=== PATIENT | male | born 1960 | race Caucasian/White ===

== ENCOUNTER 2017-07-19 01:36 | Inpatient (IN) | payer SELFPAY ==
[2017-07-19] VITALS (23 sets, daily range): BP systolic 129–188; BP diastolic 78–99; PULSE 48–71; RESP 16–19; TEMP 97.7–98.3; O2SAT 16–97
[~2017-07-19] VITALS: Ht 175.3 cm; Wt 91.9 kg
[2017-07-19] MEDS ORDERED: BENA20TA PO (02:03)
--- NOTE | 2017-07-19 02:08 | PD ---
HPI Chief Complaint: Chest Pain Time Seen by Provider: 01:58 Travel History International Travel<30 days: No Contact w/Intl Traveler<30days: No Traveled to known affect area: No History of Present Illness HPI 57-year-old male complains of chest pain. Patient states that he has intermittent substernal left-sided chest pain since yesterday afternoon. Patient states that the pain is a pressure pain localized around the substernal area and left chest area. Patient states that the pain radiated to the upper back. Patient states that the pain usually lasted a few minutes and resolved completely. Patient states that the chest pain is not associated with exertion. Patient denies any palpitation nausea diaphoresis. Patient denies any coughing congestion fever chills. Patient denies any history of CAD. Patient has history hypertension. Patient denies history of diabetes or hyperlipidemia. Patient is a nonsmoker. Patient has family history of heart disease. Patient denies any chest pain now. PFSH Past Medical History Diminished Hearing: No Hypertension: Yes Tetanus Vaccination: < 5 Years Influenza Vaccination: No Social History Alcohol Use: No Tobacco Use: No Substance Use: No Allergies-Medications (Allergen,Severity, Reaction): Coded Allergies: No Known Allergies (Unverified , 07/19/17) Reported Meds & Prescriptions Reported Meds & Active Scripts Active Reported Benazepril (Benazepril HCl) 20 Mg Tab 20 Mg PO DAILY Review of Systems General / Constitutional: No: Fever Eyes: No: Visual changes HENT: No: Headaches Cardiovascular: Positive: Chest Pain or Discomfort Respiratory: No: Shortness of Breath Gastrointestinal: No: Abdominal Pain Genitourinary: No: Dysuria Musculoskeletal: No: Pain Skin: No Rash Neurologic: No: Weakness Psychiatric: No: Depression Endocrine: No: Polydipsia Hematologic/Lymphatic: No: Easy Bruising Physical Exam Narrative GENERAL: Well-nourished, well-developed patient. SKIN: Focused skin assessment warm/dry. HEAD: Normocephalic. EYES: No scleral icterus. No injection or drainage. NECK: Supple, trachea midline. No JVD or lymphadenopathy. CARDIOVASCULAR: Regular rate and rhythm without murmurs, gallops, or rubs. RESPIRATORY: Breath sounds equal bilaterally. No accessory muscle use. GASTROINTESTINAL: Abdomen soft, non-tender, nondistended. MUSCULOSKELETAL: No cyanosis, or edema. BACK: Nontender without obvious deformity. No CVA tenderness. Neurologic exam normal. Data Data Last Documented VS Vital Signs Date Time Temp Pulse Resp B/P (MAP) Pulse Ox O2 Delivery O2 Flow Rate FiO2 07/19/17 03:18 54 16 144/84 (104) 97 Room Air 07/19/17 01:38 97.7 Orders Orders Electrocardiogram (07/19/17 02:03) Complete Blood Count With Diff (07/19/17 02:03) Comprehensive Metabolic Panel (07/19/17 02:03) Creatine Kinase (Cpk) (07/19/17 02:03) Troponin I (07/19/17 02:03) Prothrombin Time / Inr (Pt) (07/19/17 02:03) Act Partial Throm Time (Ptt) (07/19/17 02:03) Chest, Single Ap (07/19/17 02:03) Iv Access Insert/Monitor (07/19/17 02:03) Ecg Monitoring (07/19/17 02:03) Oximetry (07/19/17 02:03) Aspirin (Aspirin) (07/19/17 02:15) Heparin Inj (Heparin Inj) (07/19/17 03:30) Heparin-D5w 25,000 U/250 Ml (Heparin-D5w (07/19/17 03:30) Nitroglycerin 2% Oint (Nitroglycerin 2% (07/19/17 03:30) Admit Order (Ed Use Only) (07/19/17 03:22) Consult Cardiology (07/19/17 ) Labs Laboratory Tests Test 07/19/17 02:08 White Blood Count 6.5 TH/MM3 Red Blood Count 5.17 MIL/MM3 Hemoglobin 16.0 GM/DL Hematocrit 45.4 % Mean Corpuscular Volume 87.8 FL Mean Corpuscular Hemoglobin 30.9 PG Mean Corpuscular Hemoglobin Concent 35.2 % Red Cell Distribution Width 13.5 % Platelet Count 194 TH/MM3 Mean Platelet Volume 8.2 FL Neutrophils (%) (Auto) 60.1 % Lymphocytes (%) (Auto) 22.1 % Monocytes (%) (Auto) 14.0 % Eosinophils (%) (Auto) 2.8 % Basophils (%) (Auto) 1.0 % Neutrophils # (Auto) 3.9 TH/MM3 Lymphocytes # (Auto) 1.4 TH/MM3 Monocytes # (Auto) 0.9 TH/MM3 Eosinophils # (Auto) 0.2 TH/MM3 Basophils # (Auto) 0.1 TH/MM3 CBC Comment DIFF FINAL Differential Comment Prothrombin Time 10.1 SEC Prothromb Time International Ratio 1.0 RATIO Activated Partial Thromboplast Time 27.3 SEC Blood Urea Nitrogen 17 MG/DL Creatinine 1.12 MG/DL Random Glucose 106 MG/DL Total Protein 7.1 GM/DL Albumin 3.6 GM/DL Calcium Level 8.9 MG/DL Alkaline Phosphatase 90 U/L Aspartate Amino Transf (AST/SGOT) 22 U/L Alanine Aminotransferase (ALT/SGPT) 29 U/L Total Bilirubin 0.3 MG/DL Sodium Level 142 MEQ/L Potassium Level 3.6 MEQ/L Chloride Level 106 MEQ/L Carbon Dioxide Level 28.2 MEQ/L Anion Gap 8 MEQ/L Estimat Glomerular Filtration Rate 68 ML/MIN Total Creatine Kinase 118 U/L Troponin I 0.06 NG/ML MDM Medical Decision Making Medical Screen Exam Complete: Yes Emergency Medical Condition: Yes Interpretation(s) Last Impressions Chest X-Ray 07/19/17 020 Signed Impressions: Service Date/Time: Wednesday, July 19, 2017 02:20 - CONCLUSION: No evidence of acute cardiopulmonary disease. Chandu Persaud MD 3:14 AM. EKG shows sinus rhythm with inverted T-wave in leads 3, aVF. CBC within normal limit. CMP within normal limit. Troponin 0.06. Differential Diagnosis Differential diagnosis including musculoskeletal, angina, [place], PE, pneumothorax. Narrative Course 57-year-old male with chest pain. Aspirin 325 mg by mouth given. Spoke with Dr. Hurtado, cardiology on-call. Heparin bolus and drip and admitted [facility]. Diagnosis Primary Impression: NSTEMI (non-ST elevated myocardial infarction) Admitting Information Admitting Physician Requests: Admit Yaniv Guthrie MD Jul 19, 2017 02:08
[2017-07-19] MEDS ORDERED: ASPIRIN 325 MG TAB PO ONE (02:15)
[2017-07-19 02:31] LABS: AUTOMATED NEUTROPHIL # 3.9 TH/MM3 (1.8-7.7); BASOPHIL # 0.1 TH/MM3 (0-0.2); EOSINOPHIL # 0.2 TH/MM3 (0-0.4); EOSINOPHIL % 2.8 % (0.0-4.0); HEMATOCRIT 45.4 % (39.0-51.0); LYMPH % 22.1 % (9.0-44.0); LYMPHOCYTE # 1.4 TH/MM3 (1.0-4.8); MEAN CELL VOLUME 87.8 FL (80.0-100.0); MEAN CORPUSCULAR HEMOGLOBIN 30.9 PG (27.0-34.0); MEAN CORPUSCULAR HGB CONC 35.2 % (32.0-36.0); MEAN PLATELET VOLUME 8.2 FL (7.0-11.0); MONOCYTE # 0.9 TH/MM3 (0-0.9); NEUT % 60.1 % (16.0-70.0); PLATELET COUNT 194 TH/MM3 (150-450); RED BLOOD COUNT 5.17 MIL/MM3 (4.50-5.90); RED CELL DISTRIBUTION WIDTH 13.5 % (11.6-17.2); WHITE BLOOD COUNT 6.5 TH/MM3 (4.0-11.0)
[2017-07-19 02:41] LABS: PROTHROMBIN TIME - PATIENT 10.1 SEC (9.8-11.6)
[2017-07-19 02:46] LABS: ALBUMIN 3.6 GM/DL (3.4-5.0); ALT (GPT) 29 U/L (12-78); AST (GOT) 22 U/L (15-37); BICARBONATE 28.2 MEQ/L (21.0-32.0); BLOOD UREA NITROGEN 17 MG/DL (7-18); CALCIUM 8.9 MG/DL (8.5-10.1); CHLORIDE 106 MEQ/L (98-107); CREATININE 1.12 MG/DL (0.60-1.30); GLOMERULAR FILTRATION RATE 68 ML/MIN (>89); GLUCOSE,RANDOM 106 MG/DL (74-106); SODIUM (NA) 142 MEQ/L (136-145)
[2017-07-19 02:50] LABS: ALKALINE PHOSPHATASE 90 U/L (45-117); TOTAL BILIRUBIN ADULT 0.3 MG/DL (0.2-1.0); TOTAL PROTEIN 7.1 GM/DL (6.4-8.2); TROPONIN I 0.06 NG/ML (0.02-0.05)
--- NOTE | 2017-07-19 03:00 | RADRPT ---
EXAM DATE/TIME: 07/19/2017 02:20 [facility] COMPARISON: No previous studies available for comparison. INDICATIONS : Chest pain. MEDICAL HISTORY : Hypertension. SURGICAL HISTORY : None. ENCOUNTER: Initial ACUITY: 1 day PAIN SCORE: 6/10 LOCATION: Bilateral chest FINDINGS: A single view of the chest demonstrates the lungs to be symmetrically aerated without evidence of mas s, infiltrate or effusion. The cardiomediastinal contours are unremarkable. Osseous structures are intact. CONCLUSION: No evidence of acute cardiopulmonary disease. Chandu Persaud MD on July 19, 2017 at 2:58 Board Certified Radiologist. This report was verified electronically.
[2017-07-19] MEDS ORDERED: NITROGLYCERIN 2% OINT 1 GM PACKET TOPICAL ONE (03:30)
[2017-07-19] MEDS ORDERED: HEPARIN-D5W 25,000 U/250 ML 250 ML IV PRN (03:30)
[2017-07-19] MEDS ORDERED: HEPARIN SODIUM - IV 10,000 UNITS/10 ML VIAL IV ONE (03:30)
[2017-07-19] MEDS: SODIUM CHLOR 0.9% 1000 ML INJ 1,000 ML IV SCH ×6 (03:48→21:49)
[2017-07-19] MEDS ORDERED: ONDANSETRON HCL 4 MG/2 ML VIAL IVP PRN ×2 (04:00→15:15)
[2017-07-19] MEDS ORDERED: LACTULOSE SYRUP 20 GM/30 ML CUP PO PRN (04:00)
[2017-07-19] MEDS ORDERED: SENNOSIDES 8.6 MG TAB PO PRN (04:00)
[2017-07-19] MEDS ORDERED: NITROGLYCERIN 2% OINT 1 GM PACKET TOPICAL PRN (04:00)
[2017-07-19] MEDS ORDERED: SODIUM CHLORIDE 0.9% FLUSH 10 ML FLUSH IV FLUSH PRN (04:00)
[2017-07-19] MEDS ORDERED: MAGNESIUM HYDROXIDE SUSP 30 ML CUP PO PRN (04:00)
[2017-07-19] MEDS ORDERED: MORPHINE SULFATE 2 MG/ML INJ IV PUSH PRN (04:00)
[2017-07-19] MEDS ORDERED: BISACODYL 10 MG SUPP RECTAL PRN (04:00)
[2017-07-19] MEDS ORDERED: ACETAMINOPHEN 325 MG TAB PO PRN (04:00)
[2017-07-19] MEDS ORDERED: ACETAMINOPHEN/HYDROcodone 325 MG/5 MG TAB PO PRN (04:00)
[2017-07-19] MEDS ORDERED: MORPHINE SULFATE 2 MG/ML INJ IV PRN (04:00)
--- NOTE | 2017-07-19 04:00 | HHI.HP ---
HPI Service [facility] Primary Care Physician No Primary Care Physician Admission Diagnosis NSTEMI Diagnoses: (1) NSTEMI (non-ST elevated myocardial infarction) Diagnosis: Principal (2) HTN (hypertension) Diagnosis: Principal (3) Dehydration Diagnosis: Principal Travel History International Travel<30 Days: No Contact w/Intl Traveler <30 Da: No Traveled to Known Affected Are: No History of Present Illness This is a 57-year-old male with a PMH of HTN who presented to the ER with complaints of chest pain x1 day. Chest pain is intermittent, pressure-like w/ radiation to back. Moderate severity. Associated w/ mild SOB. No previous h/ o similar symptoms. Denies fever, chills, cough or sick contacts. On arrival, BP 188/91, HR 71, O2 sat 96% on RA, Afebrile. CBC essentially unremarkable. Chemistry unremarkable except for GFR 68. Troponin 0.06. INR 1.0. EKG with T- wave inversions III and AVF. CXR w/ no acute findings. Dr. Hurtado consulted, plan is for Cath in am. Started on Heparin gtt. Currently chest pain free. Review of Systems Except as stated in HPI: all other systems reviewed are Neg ROS: 14 point review of systems otherwise negative. Past Family Social History Past Medical History PMH: HTN Past Surgical History PAST SURGICAL HISTORY: Negative for alcohol, tobacco or drugs. Allergies: Coded Allergies: No Known Allergies (Unverified , 07/19/17) Family History PAST FAMILY HISTORY: Reviewed. No h/o DM or CAD Social History PAST SOCIAL HISTORY: Negative for alcohol, tobacco or drugs. Physical Exam Vital Signs Vital Signs Date Time Temp Pulse Resp B/P (MAP) Pulse Ox O2 Delivery O2 Flow Rate FiO2 07/19/17 03:18 54 16 144/84 (104) 97 Room Air 07/19/17 02:18 16 97 Room Air 07/19/17 02:17 97 Room Air 07/19/17 02:00 69 16 175/93 (120) 97 Room Air 07/19/17 01:38 97.7 71 19 188/91 (123) 96 Room Air Physical Exam PE: GENERAL: Pleasant middle-aged white male in no acute distress. HEENT: PERRLA, EOMI. No scleral icterus or conjunctival pallor. No lid lag or facial droop. CARDIOVASCULAR: Regular rate and rhythm. No obvious murmurs to auscultation. No chest tenderness to palpation. RESPIRATORY: No obvious rhonchi or wheezing. Clear to auscultation. Breath sounds equal bilaterally. GASTROINTESTINAL: Abdomen soft, non-tender, nondistended. BS normal. MUSCULOSKELETAL: Extremities without clubbing, cyanosis, or edema. No obvious deformities. NEUROLOGICAL: Awake, alert and oriented x4. No focal neurologic deficits. Moving both upper and lower extremities spontaneously. Laboratory Laboratory Tests Test 07/19/17 02:08 White Blood Count 6.5 Red Blood Count 5.17 Hemoglobin 16.0 Hematocrit 45.4 Mean Corpuscular Volume 87.8 Mean Corpuscular Hemoglobin 30.9 Mean Corpuscular Hemoglobin Concent 35.2 Red Cell Distribution Width 13.5 Platelet Count 194 Mean Platelet Volume 8.2 Neutrophils (%) (Auto) 60.1 Lymphocytes (%) (Auto) 22.1 Monocytes (%) (Auto) 14.0 Eosinophils (%) (Auto) 2.8 Basophils (%) (Auto) 1.0 Neutrophils # (Auto) 3.9 Lymphocytes # (Auto) 1.4 Monocytes # (Auto) 0.9 Eosinophils # (Auto) 0.2 Basophils # (Auto) 0.1 CBC Comment DIFF FINAL Differential Comment Prothrombin Time 10.1 Prothromb Time International Ratio 1.0 Activated Partial Thromboplast Time 27.3 Blood Urea Nitrogen 17 Creatinine 1.12 Random Glucose 106 Total Protein 7.1 Albumin 3.6 Calcium Level 8.9 Alkaline Phosphatase 90 Aspartate Amino Transf (AST/SGOT) 22 Alanine Aminotransferase (ALT/SGPT) 29 Total Bilirubin 0.3 Sodium Level 142 Potassium Level 3.6 Chloride Level 106 Carbon Dioxide Level 28.2 Anion Gap 8 Estimat Glomerular Filtration Rate 68 Total Creatine Kinase 118 Troponin I 0.06 Result Diagram: 07/19/1720707/19/17207 Caprini VTE Risk Assessment Caprini VTE Risk Assessment: Mod/High Risk (score >= 2) Caprini Risk Assessment Model Point Value = 1 Point Value = 2 Point Value = 3 Point Value = 5 Age 41-60 Minor surgery BMI > 25 kg/m2 Swollen legs Varicose veins or History of unexplained or recurrent spontaneous Oral contraceptives or hormone replacement Sepsis (< 1 month) Serious lung disease, including pneumonia (< 1 month) Abnormal pulmonary function Acute myocardial infarction Congestive heart failure (< 1 month) History of inflammatory bowel disease Medical patient at bed rest Age 61-74 Arthroscopic surgery Major open surgery (> 45 min) Laparoscopic surgery (> 45 min) Malignancy Confined to bed (> 72 hours) Immobilizing plaster cast Central venous access Age >= 75 History of VTE Family history of VTE Factor V Leiden Prothrombin [id number] Lupus anticoagulant Anticardiolipin antibodies Elevated serum homocysteine Heparin-induced thrombocytopenia Other congenital or acquired thrombophilia Stroke (< 1 month) Elective arthroplasty Hip, pelvis, or leg fracture Acute spinal cord injury (< 1 month) Prophylaxis Regimen Total Risk Factor Score Risk Level Prophylaxis Regimen 0-1 Low Early ambulation 2 Moderate Order ONE of the following: *Sequential Compression Device (SCD) *Heparin 5000 units SQ BID 3-4 Higher Order ONE of the following medications: *Heparin 5000 units SQ TID *Enoxaparin/Lovenox 40 mg SQ daily (WT < 150 kg, CrCl > 30 mL/min) *Enoxaparin/Lovenox 30 mg SQ daily (WT < 150 kg, CrCl > 10-29 mL/min) *Enoxaparin/Lovenox 30 mg SQ BID (WT < 150 kg, CrCl > 30 mL/min) AND/OR *Sequential Compression Device (SCD) 5 or more Highest Order ONE of the following medications: *Heparin 5000 units SQ TID (Preferred with Epidurals) *Enoxaparin/Lovenox 40 mg SQ daily (WT < 150 kg, CrCl > 30 mL/min) *Enoxaparin/Lovenox 30 mg SQ daily (WT < 150 kg, CrCl > 10-29 mL/min) *Enoxaparin/Lovenox 30 mg SQ BID (WT < 150 kg, CrCl > 30 mL/min) AND *Sequential Compression Device (SCD) Assessment and Plan Problem List: (1) NSTEMI (non-ST elevated myocardial infarction) ICD Code: I21.4 - Non-ST elevation (NSTEMI) myocardial infarction Status: Acute (2) HTN (hypertension) ICD Code: I10 - Essential (primary) hypertension (3) Dehydration ICD Code: E86.0 - Dehydration Assessment and Plan A/P: 1. NSTEMI: acute onset of chest pain, trop 0.06, EKG w/ t wave inversions III and AVF. Currently chest pain free. Admit to [facility], telemetry, check serial cardiac enzymes, lipid profile, continue Heparin gtt, start ASA, Statin, Metoprolol. Plan is for Cath in am, NPO, IVF, NTG/Morphine prn. Consult for Dr. Hurtado placed. CXR w/ no acute findings, images reviewed by me. 2. HTN: Uncontrolled. BP 180's systolic. Start Metoprolol. Monitor BP. 3. Dehydration: GFR 68, no previous labs for comparison. IVF for hydration, repeat labs in am. 4. DVT Prophylaxis: Heparin gtt 5. Social work for d/c planning as needed. 6. Case discussed w/ ER physician at length, records/labs/imaging reviewed by me. Physician Certification 2 Midnight Certification Type: Admission for Inpatient Services Order for Inpatient Services The services are ordered in accordance with Medicare regulations or non- Medicare payer requirements, as applicable. In the case of services not specified as inpatient-only, they are appropriately provided as inpatient services in accordance with the 2-midnight benchmark. Estimated LOS (days): 2 days is the estimated time the patient will need to remain in the hospital, assuming treatment plan goals are met and no additional complications. Post-Hospital Plan: Not yet determined Korin Hatfield MD Jul 19, 2017 04:00
[2017-07-19] MEDS: DOCUSATE SODIUM 50 MG/SENNA 8.6 MG TAB PO SCH ×2 (07:31→20:49)
[2017-07-19] MEDS: SODIUM CHLORIDE 0.9% FLUSH 10 ML FLUSH IV FLUSH SCH ×2 (08:54→20:49)
[2017-07-19] MEDS: METOPROLOL TARTRATE 25 MG TAB PO SCH ×2 (08:55→20:49)
[2017-07-19] MEDS: PRAVASTATIN SOD 40 MG TAB PO SCH (08:55)
[2017-07-19] MEDS ORDERED: ASPIRIN EC 81 MG TABEC PO SCH (09:00)
[2017-07-19] MEDS ORDERED: DIAZEPAM 5 MG TAB PO SCH (12:00)
[2017-07-19] MEDS: NITROGLYCERIN 2% OINT 1 GM PACKET TOPICAL SCH ×2 (12:00→18:00)
[2017-07-19] MEDS ORDERED: ASPIRIN 325 MG TAB PO SCH (12:00)
[2017-07-19] MEDS ORDERED: diphenhydrAMINE HCL 50 MG CAP PO SCH (12:00)
[2017-07-19] MEDS ORDERED: VERAPAMIL HCL 5 MG/2 ML VIAL ONE (12:44)
[2017-07-19] MEDS ORDERED: HEPARIN-NS/PF INJ 1,000 ML ONE (12:44)
[2017-07-19] MEDS ORDERED: HEPARIN SODIUM - IV 10,000 UNITS/10 ML VIAL ONE (12:45)
[2017-07-19] MEDS ORDERED: IOHEXOL 350 MG/ML 100 ML BTL (for Cath Lab) OTHER ONE (12:48)
[2017-07-19] MEDS ORDERED: IOHEXOL 350 MG/ML 50 ML BTL (for Cath Lab) OTHER ONE (12:48)
[2017-07-19] MEDS ORDERED: MIDAZOLAM HCL 2 MG/2 ML VIAL ONE ×3 (13:25→14:41)
[2017-07-19] MEDS ORDERED: BIVALIRUDIN 250 MG VIAL ONE (13:43)
[2017-07-19] MEDS ORDERED: STERILE WATER FOR INJECTION 10 ML VIAL ONE (13:43)
[2017-07-19] MEDS ORDERED: TICAGRELOR 90 MG TAB PO ONE ×2 (14:55→15:15)
[2017-07-19] MEDS ORDERED: MISC INFORMATION XX ONE (15:15)
[2017-07-19] MEDS ORDERED: BACITRACIN OINT 0.9 GM PKT TOP ONE (15:15)
--- NOTE | 2017-07-19 15:17 | CATHPROC ---
Transcepta HIS Report Study Information Study Number Admission Scheduled Start Study Start [id number] Jul 19 2017 3:24AM 07/19/2017 Jul 19 2017 12:44PM [place] Service Cardiac Catheterization Admit Source Facility Department Emergency department [facility] - Accounts Receivable Analyst Physician and Clinical Staff Initial Tuan Nichols Balance Bridge Assembler Rico Hollingsworth,ARIADNE Balance Bridge Assembler Madonna Sandra,ARIADNE Recorder Prakash, Eloise,DRESS DESIGNER TECH2 Scrub Aristeo Boswell,RT(R) Procedures Performed Procedure Location (Site) Vessel Name Coronary Angiograms LCA Left Coronary Coronary Angiograms RCA Right Coronary Drug Eluting Inflatio DIAG Prox Left Coronary Drug Eluting Inflatio LAD Prox Left Coronary LV Gram-hand inj. LV LV Ventricle PTCA DIAG1 Prox Left Coronary PTCA LAD Prox Left Coronary Wire insertion Radial (right) Radial Art. Equipment Time Electric Organ Inspector And Repairer Description Size Mfg Part Number Used/Scraped WIRE, BALANCE MIDDLEWEIGHT [id number] 13:48 [employer] 190CM Used 190CM *[id number] TRANSDUCER, TRUWAVE [id number] 12:53 YOUNG PEARSON * Used W/STOCKCOCK *[id number] *[id number] *[id number] *[id number] 12:53 MALLINCKRODT SYRINGE, ANGIOMAT 150ML 150ML *[id number] Used 2SUB [id number] 12:53 MEDLINE INDUSTRIES PACK, CCL CUSTOM * Used *[id number] 12:53 [employer] SUPPORT, ARTERIAL ADULT 41592 *[id number] Used [id number] 12:53 MEDLINE PACER PEN, SKIN DUAL W/ RULER * Used *[id number] 14:04 MEDTRONIC BALLOON, 2.0 X 20MM EUPHORA 20MM Used *[id number] [id number] 14:32 MEDTRONIC BALLOON, 2.5 X 20MM EUPHORA 20MM Used *6025682 [id number] 14:42 MEDTRONIC BALLOON, 3.0 X 20MM EUPHORA 20MM Used *[id number] [id number] 14:15 MEDTRONIC STENT, 2.25 18MM DARRICK 2.25 18MM Used *[id number] 14:22 MEDTRONIC STENT, 2.25 8MM DARRICK 2.25 8MM Used *[id number] [id number] 14:31 MEDTRONIC STENT, 4.0 22MM DARRICK 4.0 22MM Used *[id number] [id number] 14:11 Plum (Formerly Ube) 30 NGOZI INDEFLATOR Used *[id number] BAND, RADIAL COMPRESSION TR [id number] 14:56 benchee MEDICAL 29CM Used LARGE 29 *[id number] 12:53 Plum (Formerly Ube) WIRE, EXCHANGE 260CM 3MMJ 260CM Used *[id number] 12:53 NAMIC MANIFOLD, 4 PORT * Used *4743761 12:53 NYCOMED OMNIPAQUE, 350 MG, 100ML 100ML [id number] Used [id number] 12:53 [employer]ix BLANKET,WARM AIR CCL * Used *7254364 12:53 [employer] JELCO NEEDLE 4056 *4316684 Used CATHETER, FR5 OPTITORQUE [id number] 13:13 Colingo FR 5 Used RADIAL TIG 4.0 *[id number] SHEATH, FR6 TRANSRADIAL RM*[id number] 12:53 [employer] FR 6 Used SLENDER 10CM *[id number] Equipment Model, Serial, Lot Number and Expiration Data Description Model Number Serial Number Lot Number Expiration Sean e BALLOON, 2.5 X 20MM EUPHORA [id number] 11-26-2018 BALLOON, 3.0 X 20MM EUPHORA [id number] 01-24-2019 STENT, 2.25 18MM DARRICK [id number] 03-09-2019 STENT, 2.25 8MM DARRICK [id number] 12-03-2018 STENT, 4.0 22MM DARRICK [id number] 03-06-2019 History: Allergies Allergy Reaction No Known Allergies History: Risk Factors Family History of Hypertension Dyslipidemia Previous NM Previous Heart Failure Premature CAD Yes No Yes No No Prior Valve Prior PCI Prior CABG Surgery No No No Cerebrovascular Peripheral Artery Chronic Lung On Dialysis Diabetes Disease Disease Disease No No No No No History: Symptoms/Diagnosis Selection Items Chest pain SOB History: Stress Tests Stress or Imaging Studies Performed No History: Other Current Smoker Method Quit Packs a Day Years Used Pack Years No Cigarettes 4 Years Ago 1 35 35 Labs Hgb (g/dl) Hct (%) RBC (MIL/MM3) WBC (l/cumm) Platelets (thousands) 11.60-17.00 35.00-51.00 4.00-5.90 4.00-11.00 150.00-450.00 16.0 45.4 5.2 6.5 194 Glucose (mg/dl) BUN (mg/dl) Creatinine (mg/dl) BUN:Creatinine (1:x) 74.00-106.00 7.00-18.00 0.50-1.30 10.00-20.00 106 17 1.1 15.5 Na (meq/l) K (meq/l) Cl (meq/l) CO2 (mmol/L) Ca (mg/dl) 136.00-145.00 3.50-5.10 98.00-107.00 21.00-32.00 8.50-10.10 142 3.6 106 28.2 8.9 PT (sec) PTT (sec) INR (PTT:PT) 9.80-11.60 24.30-30.10 0.90-1.10 10.1 38.4 1 Troponin I (ng/ml) CPK (u/l) CPK-MB (ng/ML) 0.02-0.05 26.00-308.00 0.50-3.60 0.06 118 Not Drawn Medication Medication Total Dose (Bolus/Oral) Medication Total Dosage/Unit 1% XYLOCAINE 10 mL BRILINTA 180 mg FENTANYL 75 mcg HEPARIN 6500 units NITRO OINTMENT 1 inches NTG (IC) 100 mcg OXYGEN 2 l/min RADIAL COCKTAIL 5 mL (Bolus) VERSED 4.5 mg Medications (Bolus/Oral) Medication Time Given Dosage/Unit Administered By Reason 07/19/2017 12:56:37 NITRO OINTMENT 1 inches PM Patient arrived on 1 inches NITRO OINTMENT via Topical. VERSED 07/19/2017 1:26:07 PM 2 mg Madonna Sandra 2 mg VERSED given in lab by Madonna Sandra, RN in Right Antecubital via Peripheral IV. Ordered by Tuan Pepe. FENTANYL 07/19/2017 1:28:13 PM 50 mcg Madonna Sandra 50 mcg FENTANYL given in lab by Madonna Sandra, RN in Right Antecubital via Peripheral IV. Ordered b Tuan Lindsay. 1% XYLOCAINE 07/19/2017 1:30:10 PM 10 mL Tuan Hurtado 10 mL 1% XYLOCAINE given in lab by Tuan Hurtado in Right Radial via Subcutaneous. Ordered by Tuan Hurtado. VERSED 07/19/2017 1:30:49 PM 0.5 mg Madonna Sandra 0.5 mg VERSED given in lab by Madonna Sandra RN in Right Antecubital via Peripheral IV. Ordered by Tuan Hurtado. OXYGEN 07/19/2017 1:31:15 PM 2 l/min Madonna Sandra 2 l/min OXYGEN given in lab by Madonna Sandra RN via Nasal. Ordered by Tuan Hurtado. Ntg 200mcg Verapamil 2.5mg Heparin RADIAL COCKTAIL 07/19/2017 1:33:40 PM 5 mL (Bolus) Tuan Hurtado 2500U 5 mL (Bolus) RADIAL COCKTAIL given in lab by Tuan Hurtado in Right Radial via Radial. Using [Solutio n Name]. Ordered by Tuan Hurtado. Reason: Ntg 200mcg Verapamil 2.5mg Heparin 2500U. HEPARIN 07/19/2017 1:48:17 PM 4000 units Rico Hollingsworth 4000 units HEPARIN given in lab by Rico Hollingsworth RN in Right Antecubital via Peripheral IV. Ordered by Tuan Hurtado. HEPARIN 07/19/2017 2:02:46 PM 2500 units Madonna Sandra 2500 units HEPARIN given in lab by Madonna Sandra RN in Right Antecubital via Peripheral IV. Ordere d by Tuan Hurtado. VERSED 07/19/2017 2:34:10 PM 1 mg Madonna Sandra 1 mg VERSED given in lab by Madonna Sandra RN in Right Antecubital via Peripheral IV. Ordered by Tuan Pepe. VERSED 07/19/2017 2:41:54 PM 1 mg Rico Hollingsworth 1 mg VERSED given in lab by Rico Hollingsworth RN in Right Antecubital via Peripheral IV. Ordered by Tuan Goddard. FENTANYL 07/19/2017 2:42:30 PM 25 mcg Rico Hollingsworth 25 mcg FENTANYL given in lab by Rico Hollingsworth RN in Right Antecubital via Peripheral IV. Ordered by Tuan Hurtado. NTG (IC) 07/19/2017 2:49:38 PM 100 mcg Tuan Hurtado 100 mcg NTG (IC) given in lab by Tuan Hurtado via Intra-coronary. Ordered by Tuan Hurtado. BRILINTA 07/19/2017 2:58:09 PM 180 mg Rico Hollingsworth 180 mg BRILINTA given in lab by Rico Hollingsworth RN via Oral. Ordered by Tuan Hurtado. Medication (Drip) Medication Time Given Dosage/Unit Concentration/Unit Diluent (ml) Solution 07/19/2017 12:56:29 IV Solutions 0 mL (IV) 500 NaCl .9 PM Patient arrived on IV Solutions in Left Antecubital via Peripheral IV. Pump/Drip Flow = 20 ml/hr usin g NaCl .9. Initial Case Assessment Cardiovascular HR Rhythm NIBP Chest Pain 62 sr 160/94 0 Circulatory - Right Pulses Dorsalis Pedis Femoral Radial 3 3 3 Scale (0,1,2,3,4,d) Circulatory - Left Pulses Dorsalis Pedis Femoral Radial 3 3 Scale (0,1,2,3,4,d) Final Case Assessment Cardiovascular HR Rhythm NIBP Chest Pain 76 sr 144/93 0 Circulatory - Right Pulses Dorsalis Pedis Femoral Radial 3 3 3 Scale (0,1,2,3,4,d) Circulatory - Left Pulses Dorsalis Pedis Femoral Radial 3 3 Scale (0,1,2,3,4,d) Neurological State Oriented to time-place- Alert Moves all extremities person Respiration - General Respiration Rate O2 (lpm) (B/min) 15 2 Chronological Log Time Study Chronological Log 12:56:15 Patient arrived via Bed. 12:56:16 Patient Name, D.O.B, / Armband Verified By R.N. 12:56:17 Consent signed by the physician and the patient and verified by the Accounts Receivable Analyst staff. 12:56:18 Pre-op and post- op instructions given; patient acknowledges understanding of instructions. 12:56:19 Verbal Stimulation=2 Physical Stimulation=2 Airway=2 Respiration=2 TOTAL=8. (0=absent, 1=li mited, 2=present) 12:56:22 Allens test performed on the right radial and ulnar artery. 12:56:24 Patient has been NPO for Less than 6Hrs. 12:56:25 Skin Breakdown-none 12:56:26 Peter Prominences Protected 12:56:28 A # 20 IV was noted in the Antecubital (left). Grade = patent 12:56:29 Patient arrived on IV Solutions in Left Antecubital via Peripheral IV. Pump/Drip Flow = 20 ml/hr using NaCl .9. 12:56:32 History and physical on the chart or being dictated. 12:56:37 Patient arrived on 1 inches NITRO OINTMENT via Topical. Vitals capture started with the following parameters, Patient=Adult, Interval=5 min, Initial Pr zgojfg=784 mmHg, 12:59:32 Deflation Rate=5 mmHg, Cuff placed on Left Arm 13:00:13 HR=62 bpm, INSV=666/94 mmhg, SpO2=96.0 %, Resp=12 B/min, Pain=0, Miquel=10, May=2 Assessment: Initial Case, HR=62 BPM, Rhythm=sr, VULY=346/94 mmhg, Chest Pain=0 13:00:41 Right Pulses: Lm Ped=3, Femoral=3, Radial=3 Left Pulses: Lm Ped=3, Femoral=3 13:05:10 HR=51 bpm, KXGU=845/89 mmhg, SpO2=96.0 %, Resp=16 B/min, Pain=0, Miquel=10, May=2 13:10:13 HR=59 bpm, HGPG=790/91 mmhg, SpO2=97.0 %, Resp=11 B/min, Pain=0, Miquel=10, May=2 13:11:32 Right groin and right wrist prepped with 2% chlorhexidine, and draped after a 3 min. waitin g time. 13:13:21 MD paged 13:15:16 HR=54 bpm, GXIS=612/89 mmhg, SpO2=97.0 %, Resp=18 B/min 13:16:11 Pressure channel 1 zeroed. 13:20:13 HR=57 bpm, XYYO=162/89 mmhg, SpO2=93.0 %, Resp=18 B/min 13:21:13 MD arrived. 13:23:49 Reference ECG taken 13:25:12 HR=63 bpm, BJTB=431/94 mmhg, SpO2=93.0 %, Resp=20 B/min 13:26:07 2 mg VERSED given in lab by Madonna Sandra, ARIADNE in Right Antecubital via Peripheral IV. Ord ered by Tuan Hurtado. Time Out. Correct patient, correct procedure, correct physician, power injector loaded, or not loaded with contrast with 13:26:27 surgical team present. Time Out Concurred by MD and individual staff in procedure. 13:28:13 50 mcg FENTANYL given in lab by Madonna Sandra, RN in Right Antecubital via Peripheral IV. Ordered by Tuan Hurtado. 13:30:08 Case Start 13:30:10 10 mL 1% XYLOCAINE given in lab by Tuan Hurtado in Right Radial via Subcutaneous. Ordered by Tuan Hurtado. 13:30:13 HR=64 bpm, DOEN=621/88 mmhg, SpO2=91.0 %, Resp=19 B/min 13:30:49 0.5 mg VERSED given in lab by Madonna Sandra RN in Right Antecubital via Peripheral IV. O rdered by Tuan Hurtado. 13:31:15 2 l/min OXYGEN given in lab by Madonna Sandra, ARIADNE via Nasal. Ordered by Tuan Hurtado. 13:32:11 Access site was Radial Artery. A SHEATH, FR6 TRANSRADIAL SLENDER 10CM FR 6 was advanced into the Radial (right) using the Perc utaneous 13:32:35 technique. 5 mL (Bolus) RADIAL COCKTAIL given in lab by Tuan Hurtado in Right Radial via Radial. Using [S olution Name]. 13:33:40 Ordered by Tuan Hurtado. Reason: Ntg 200mcg Verapamil 2.5mg Heparin 2500U. A CATHETER, FR5 OPTITORQUE RADIAL TIG 4.0 FR 5 was advanced over a wire. OMNIPAQUE, 350 MG, 100 ML 100ML 13:34:34 was used for injections. 13:35:12 HR=66 bpm, DAND=341/76 mmhg, SpO2=95 %, Resp=15 B/min, Miquel=10 Recorded Pressure: Ao, HR=70, Condition=Condition 1 13:36:02 (Aorta) Ao 115/77/95 13:37:10 The LCA was injected and visualized at various angles. OMNIPAQUE, 350 MG, 100ML 100ML used . 13:40:15 HR=70 bpm, CAID=759/72 mmhg, SpO2=92.0 %, Resp=12 B/min Recorded Pressure: LV, HR=73, Condition=Condition 1 13:41:01 (Left Ventricle) LV 125/7/12 13:41:32 The LV was manually injected with 10 cc's and visualized. OMNIPAQUE, 350 MG, 100ML 100ML us ed. Recorded Pressure: LV, Ao, HR=70, Condition=Condition 1 13:41:38 (Left Ventricle) LV 129/11/15, (Aorta) Ao 119/74/95 13:43:33 After removing the current catheter a catheter was advanced over a WIRE, EXCHANGE 260CM 3MM J 260CM. 13:45:16 HR=66 bpm, PJWX=050/77 mmhg, SpO2=93.0 %, Resp=12 B/min 13:46:36 The RCA was injected and visualized at various angles. OMNIPAQUE, 350 MG, 100ML 100ML used . 13:48:17 4000 units HEPARIN given in lab by Rico Hollingsworth, RN in Right Antecubital via Peripheral IV . Ordered by Tuan Hurtado. 13:50:15 HR=65 bpm, LSYP=848/77 mmhg, SpO2=94.0 %, Resp=13 B/min 13:55:12 HR=59 bpm, JMJO=702/79 mmhg, SpO2=97 %, Resp=13 B/min 13:57:37 Activated Clotting Time Drawn After removing the current catheter a XB 3.5 GUIDE CATHETER FR 6 was advanced over a WIRE, EXCH EAMON 260CM 13:57:42 3MMJ 260CM. 14:00:15 HR=59 bpm, YQLP=664/82 mmhg, SpO2=96.0 %, Resp=14 B/min 14:00:34 A WIRE, BALANCE MIDDLEWEIGHT 190CM 190CM was inserted via Radial (right) to the Diagonal. 14:01:47 ACT (Normal Range 90-180) = 255 2500 units HEPARIN given in lab by Madonna Sandra, RN in Right Antecubital via Peripheral IV. Ordered by Bryant, 14:02:46 Tuan. 14:05:15 HR=57 bpm, KHVW=358/81 mmhg, SpO2=97.0 %, Resp=13 B/min 14:05:20 A WIRE, ATW MARKER 195CM 195CM was inserted via Radial (right) to the LAD. 14:09:03 Activated Clotting Time Drawn A BALLOON, 2.0 X 20MM EUPHORA 20MM was inserted over WIRE, BALANCE MIDDLEWEIGHT 190CM 190CM via the 14:09:34 DIAG1 Prox. 14:10:18 HR=58 bpm, EEAK=544/76 mmhg, SpO2=98.0 %, Resp=13 B/min A BALLOON, 2.0 X 20MM EUPHORA 20MM over a WIRE, BALANCE MIDDLEWEIGHT 190CM 190CM in the DIAG1 P lainey 14:11:16 was inflated using a 30 NGOZI INDEFLATOR at 12 ngozi for 34 sec. A BALLOON, 2.0 X 20MM EUPHORA 20MM over a WIRE, BALANCE MIDDLEWEIGHT 190CM 190CM in the DIAG1 P lainey 14:12:09 was inflated using a 30 NGOZI INDEFLATOR at 12 ngozi for 30 sec. 14:12:51 Balloon Removed. 14:15:17 HR=64 bpm, LYKV=458/84 mmhg, QdL5=167.0 %, Resp=11 B/min A STENT, 2.25 18MM DARRICK 2.25 18MM was advanced through a XB 3.5 GUIDE CATHETER FR 6 over a WIRE , BALANCE 14:16:32 MIDDLEWEIGHT 190CM 190CM. 14:17:08 ACT (Normal Range 90-180) = 435 A STENT, 2.25 18MM DARRICK 2.25 18MM was deployed using a 30 NGOZI INDEFLATOR at 9 atmospheres for 2 2 seconds in 14:19:08 the DIAG Prox. 14:20:01 Delivery device removed 14:20:18 HR=60 bpm, MEKM=826/87 mmhg, SpO2=99.0 %, Resp=13 B/min, Miquel=10 A STENT, 2.25 8MM DARRICK 2.25 8MM was advanced through a XB 3.5 GUIDE CATHETER FR 6 over a WIRE, BALANCE 14:23:57 MIDDLEWEIGHT 190CM 190CM. A STENT, 2.25 8MM DARRICK 2.25 8MM was deployed using a 30 NGOZI INDEFLATOR at 8 atmospheres for 22 seconds in 14:24:20 the DIAG Prox. 14:25:03 Re-inflated the stent balloon in the DIAG Prox to 10 NGOZI for 13 seconds. 14:25:17 HR=64 bpm, DQFN=535/90 mmhg, SpO2=97.0 %, Resp=25 B/min ::32 Delivery device removed A STENT, 4.0 22MM DARRICK 4.0 22MM was advanced through a XB 3.5 GUIDE CATHETER FR 6 over a WIRE, ATW 14:29:12 MARKER 195CM 195CM. 14:30:18 HR=66 bpm, DTTF=071/91 mmhg, SpO2=94.0 %, Resp=15 B/min 14:31:33 Stent not deployed. Stent removed and intact. 14:32:48 A BALLOON, 2.5 X 20MM EUPHORA 20MM was inserted over WIRE, ATW MARKER 195CM 195CM via the L AD Prox. 14:34:10 1 mg VERSED given in lab by Madonna Sandra RN in Right Antecubital via Peripheral IV. Ord ered by Tuan Hurtado. A BALLOON, 2.5 X 20MM EUPHORA 20MM over a WIRE, ATW MARKER 195CM 195CM in the LAD Prox was infl ated 14:34:16 using a 30 NGOZI INDEFLATOR at 16 ngozi for 30 sec. 14:35:19 HR=64 bpm, TSJV=484/94 mmhg, SpO2=98.0 %, Resp=20 B/min 14:35:27 Balloon Removed. 14:37:54 A implantable was advanced through a XB 3.5 GUIDE CATHETER FR 6 over a WIRE, ATW MARKER 195 CM 195CM. 14:39:59 Stent not deployed. Stent removed and intact. 14:40:20 HR=64 bpm, XRQE=575/88 mmhg, SpO2=99.0 %, Resp=10 B/min 14:41:41 A BALLOON, 3.0 X 20MM EUPHORA 20MM was inserted over WIRE, ATW MARKER 195CM 195CM via the L AD Prox. 14:41:54 1 mg VERSED given in lab by Rico Hollingsworth, RN in Right Antecubital via Peripheral IV. Order ed by Tuan Hurtado. 14:42:30 25 mcg FENTANYL given in lab by Rico Hollingsworth RN in Right Antecubital via Peripheral IV. O rdered by Tuan Hurtado. 14:45:19 HR=60 bpm, XQRL=987/90 mmhg, SpO2=95.0 %, Resp=11 B/min A BALLOON, 3.0 X 20MM EUPHORA 20MM over a WIRE, ATW MARKER 195CM 195CM in the LAD Prox was infl ated 14:46:46 using a 30 NGOZI INDEFLATOR at 8 ngozi for 16 sec. A BALLOON, 3.0 X 20MM EUPHORA 20MM over a WIRE, ATW MARKER 195CM 195CM in the LAD Prox was infl ated 14:47:11 using a 30 NGOZI INDEFLATOR at 8 ngozi for 10 sec. 14:48:23 Balloon Removed. 14:49:21 BMW Wire removed 14:49:38 100 mcg NTG (IC) given in lab by Tuan Hurtado via Intra-coronary. Ordered by Tuan Hurtado . A STENT, 4.0 22MM DARRICK 4.0 22MM was advanced through a XB 3.5 GUIDE CATHETER FR 6 over a WIRE, ATW 14:50:04 MARKER 195CM 195CM. 14:50:20 HR=75 bpm, PRUB=284/90 mmhg, SpO2=93 %, Resp=15 B/min A STENT, 4.0 22MM DARRICK 4.0 22MM was deployed using a 30 NGOZI INDEFLATOR at 12 atmospheres for 34 seconds in 14:51:38 the LAD Prox. 14:53:04 Delivery device removed 14:55:17 HR=64 bpm, ZOKE=676/87 mmhg, SpO2=92.0 %, Resp=14 B/min 14:55:43 Wire removed 14:55:50 Guide Catheter was removed 14:56:08 Case End 14:58:09 180 mg BRILINTA given in lab by Rico Hollingsworth, RN via Oral. Ordered by Tuan Hurtado. Radial Compression Device Used. 13 mLs of air placed in BAND, RADIAL COMPRESSION TR LARGE 29 29 CM. Affected 14:59:17 hand 94 % O2 saturation. 15:00:20 HR=64 bpm, QUPX=460/93 mmhg, SpO2=96.0 %, Resp=14 B/min, Miquel=10 Assessment: Final Case, HR=76 BPM, Rhythm=sr, ZSKG=460/93 mmhg, Chest Pain=0 Right Pulses: Lm Ped=3, Femoral=3, Radial=3 15:00:47 Left Pulses: Lm Ped=3, Femoral=3 Neurological: State=Alert, Ox3, WHITE Respiration: Resp=15 B/min, O2=2 lpm 15:02:18 No case complications noted. 15:02:22 Cine recording checked. 15:02:55 Implantable Device card placed in patient's chart. 15:02:59 Bedside Report will be given. 15:05:06 Patient moved to bed. 15:07:38 Patient transported to [facility]. End Study - Contrast Media Used In Study Contrast Total Opened (mL) Total Used (mL) Total Wasted (mL) Omnipaque 220 220 0 End Study - Maximum Contrast Load Max Contrast Load (mL) 409.1 End Study - Radiation Exposure Fluoro Time (minutes) 25.0 End Study - Sheaths Sheaths Pulled By Sheath Hold Time (min) Aristeo Boswell End Study - Patient Disposition Complications Transferred To Interventional Outcome No Telemetry Bed successful
--- NOTE | 2017-07-19 17:16 | MA ---
cc: SRINIVAS TORRES M.D. DATE: 07/19/2017. PROCEDURE PERFORMED: Right radial arterial access, left heart catheterization, left ventriculography, coronary angiography, tandem stenting of the first diagonal branch of the left anterior descending artery, complex balloon angioplasty and stenting of the proximal left anterior descending coronary artery. DESCRIPTION OF THE PROCEDURE IN DETAIL: The patient was brought to the cardiac blood bank laboratory technologist under emergency conditions. He received a total 3 milligrams of IV Versed and 50 micrograms of IV fentanyl for initial sedation using 1% lidocaine for local anesthesia. A 6 and 5 Terumo slender sheath was introduced into the right radial artery using a Jelco needle. A standard cocktail was administered with 200 micrograms of nitroglycerin, 2.5 milligrams of verapamil and 2500 units of heparin. A tiger catheter was used to image the left coronary artery. I could not get it to engage the right coronary artery. A right 5-Robbie was then used to image the right coronary artery. Left ventriculogram and pullback was also performed with the Sparks catheter. The films were studied and I opted to do a diagonal and left anterior descending intervention. A 6-Ukrainian XB 3.5 left anterior descending guiding catheter was used to engage the left main. The diagonal branch was wired with a BMW wire. The left anterior descending was wired with a marker wire. The left anterior descending lesion was measured. Next I stented the diagonal branch utilizing a 2.25 x 18 mm Resolute stent at 8 atmospheres. There was some residual disease on the distal end so I placed a 2.25 x 8 mm Resolute [place] in tandem with the other stents at 9 atmospheres and dilated the overlap of the two stents at 10 atmospheres. The diagonal branch now had good flow and no residual stenosis. I then tried to direct stent the left anterior descending. The stent would not cross. I pre-dilated with a 2.5 mm balloon. The stent would still not cross. I pre-dilated with a 3 mm balloon more proximally and this time I was able to cross with a 4.0 x 22 mm Resolute stent which was deployed at 12 atmospheres. Follow up angiography demonstrated an excellent result. There were no complications. The patient was loaded with Brilinta at the end of the case. The guiding catheter and the sheath were removed with a Terumo band placed. The estimated blood loss was 30 cc. FINDINGS: 1. Hemodynamics: Left ventricular pressure is 129/11 with an end diastolic pressure of 15. Aortic pressure is 119/74 with a mean of 95. There was no gradient during pullback. 2. Left ventriculography: The left ventricle suboptimally filled but ejection fraction appears probably normal with estimated ejection fraction of 50%. 3. Coronary angiography: The left main coronary artery is a large vessel with about 10% distal narrowing. It trifurcates into the circumflex artery, a very small ramus branch and the left anterior descending. The circumflex artery has about 50% stenosis between the first and second obtuse marginal branches. The first obtuse marginal branch has 10% to 20% disease. The second obtuse marginal branch has 30% disease. The ramus intermediate branch is very small and has about 40% ostial disease. The diagonal branch gives off a small but long diagonal branch which has 99% stenosis. The left anterior descending proximally then has a long 90% stenosis. The right coronary artery is dominant and has a stenosis starting about 30% in the proximal and extending into the mid-segment. RESULTS OF STENTING: Following stenting of the left anterior descending, the 90% stenosis had been reduced to 0% with change in NYLA flow from grade 2 to grade 3. Following stenting of the diagonal branch, the 99% stenosis had been reduced to 0% with improvement of NYLA flow from grade II to grade III. CONCLUSIONS: 1. Normal hemodynamics. 2. Preserved left ventricular function. 3. Critical left anterior descending and diagonal disease with moderate circumflex and mild right coronary artery disease. 4. Successful complex stenting of the left anterior descending and diagonal branch with excellent angiographic results. PLAN: 1. The patient will be put on aspirin and Brilinta. 2. Assuming he remains stable, he will be able to be discharged tomorrow. MD MARINA Valle/JESSICA /2:56 PM /4:49 PM
[2017-07-19] MEDS: TICAGRELOR 90 MG TAB PO SCH (20:56)
--- NOTE | 2017-07-19 21:50 | EKG ---
Date Performed: 07/19/2017 Time Performed: 17:21:28 PTAGE: 57 years EKG: Sinus rhythm . Leftward axis Borderline ECG PREVIOUS TRACING : 07/19/2017 12.15 Compared to prior tracing no significant change DOCTOR: Sampson Meng Interpretating Date/Time 07/19/2017 21:49:44
--- NOTE | 2017-07-19 22:15 | EKG ---
Date Performed: 07/19/2017 Time Performed: 12:15:58 PTAGE: 57 years EKG: Sinus bradycardia with borderline 1st degree A-V block. Leftward axis Borderline ECG PREVIOUS TRACING : 07/19/2017 01.52 Compared to the previous tracing, rate has decreased DOCTOR: Sampson Meng Interpretating Date/Time 07/19/2017 22:13:35
[2017-07-20] VITALS (10 sets, daily range): BP systolic 132–154; BP diastolic 84–89; PULSE 56–86; RESP 16–18; TEMP 97.4–98.1; O2SAT 91–97
[2017-07-20] MEDS: SODIUM CHLOR 0.9% 1000 ML INJ 1,000 ML IV SCH ×2 (01:38→07:38)
[2017-07-20] MEDS: NITROGLYCERIN 2% OINT 1 GM PACKET TOPICAL SCH ×3 (01:38→12:00)
[2017-07-20 07:06] LABS: ALBUMIN 3.3 GM/DL (3.4-5.0); AST (GOT) 39 U/L (15-37); BLOOD UREA NITROGEN 13 MG/DL (7-18); CALCIUM 8.7 MG/DL (8.5-10.1); CHLORIDE 109 MEQ/L (98-107); CHOLESTEROL 179 MG/DL (120-200); CREATININE 0.98 MG/DL (0.60-1.30); GLOMERULAR FILTRATION RATE 79 ML/MIN (>89); GLUCOSE,RANDOM 80 MG/DL (74-106); SODIUM (NA) 141 MEQ/L (136-145); TRIGLYCERIDES 146 MG/DL (42-150)
[2017-07-20 07:09] LABS: ALKALINE PHOSPHATASE 92 U/L (45-117); ALT (GPT) 27 U/L (12-78); CHOLESTEROL/ HDL RATIO 5.35 RATIO; HDL CHOLESTEROL 33.4 MG/DL (40.0-60.0); LDL CHOLESTEROL 116 MG/DL (0-99); TOTAL BILIRUBIN ADULT 0.7 MG/DL (0.2-1.0); TOTAL PROTEIN 6.6 GM/DL (6.4-8.2)
[2017-07-20 07:37] LABS: AUTOMATED NEUTROPHIL # 5.4 TH/MM3 (1.8-7.7); BASOPHIL % 0.4 % (0.0-2.0); EOSINOPHIL # 0.1 TH/MM3 (0-0.4); EOSINOPHIL % 1.2 % (0.0-4.0); HEMATOCRIT 43.8 % (39.0-51.0); HEMOGLOBIN 15.3 GM/DL (13.0-17.0); LYMPH % 14.5 % (9.0-44.0); LYMPHOCYTE # 1.1 TH/MM3 (1.0-4.8); MEAN CORPUSCULAR HEMOGLOBIN 30.7 PG (27.0-34.0); MEAN CORPUSCULAR HGB CONC 34.9 % (32.0-36.0); MEAN PLATELET VOLUME 8.5 FL (7.0-11.0); MONO % 9.9 % (0.0-8.0); MONOCYTE # 0.7 TH/MM3 (0-0.9); PLATELET COUNT 193 TH/MM3 (150-450); RED BLOOD COUNT 4.98 MIL/MM3 (4.50-5.90); RED CELL DISTRIBUTION WIDTH 13.6 % (11.6-17.2); WHITE BLOOD COUNT 7.3 TH/MM3 (4.0-11.0)
[2017-07-20] MEDS: TICAGRELOR 90 MG TAB PO SCH (08:25)
[2017-07-20] MEDS: SODIUM CHLORIDE 0.9% FLUSH 10 ML FLUSH IV FLUSH SCH (08:25)
[2017-07-20] MEDS: METOPROLOL TARTRATE 25 MG TAB PO SCH (08:25)
[2017-07-20] MEDS: PRAVASTATIN SOD 40 MG TAB PO SCH (08:25)
[2017-07-20] MEDS: DOCUSATE SODIUM 50 MG/SENNA 8.6 MG TAB PO SCH (08:26)
[2017-07-20] MEDS ORDERED: BRIL90TA PO (08:40)
[2017-07-20] MEDS ORDERED: PRAV40TA PO (08:40)
[2017-07-20] MEDS ORDERED: METO25TA3 PO (08:40)
--- NOTE | 2017-07-20 08:46 | HHI.DS ---
Discharge Summary Admission Date Jul 19, 2017 at 03:24 Discharge Date: Jul 20, 2017 Admitting Diagnosis NSTEMI (1) NSTEMI (non-ST elevated myocardial infarction) ICD Code: I21.4 - Non-ST elevation (NSTEMI) myocardial infarction Status: Acute (2) HTN (hypertension) ICD Code: I10 - Essential (primary) hypertension (3) Dehydration ICD Code: E86.0 - Dehydration Procedures Cardiac catheterization with 3 stents placed on 07/19/17 Brief History - From Admission This is a 57-year-old male with a PMH of HTN who presented to the ER with complaints of chest pain x1 day. Chest pain is intermittent, pressure-like w/ radiation to back. Moderate severity. Associated w/ mild SOB. No previous h/ o similar symptoms. Denies fever, chills, cough or sick contacts. On arrival, BP 188/91, HR 71, O2 sat 96% on RA, Afebrile. CBC essentially unremarkable. Chemistry unremarkable except for GFR 68. Troponin 0.06. INR 1.0. EKG with T- wave inversions III and AVF. CXR w/ no acute findings. Dr. Hurtado consulted, plan is for Cath in am. Started on Heparin gtt. Currently chest pain free. CBC/BMP: 07/20/17 0505 07/20/17 0505 Significant Findings Laboratory Tests Test 07/19/17 02:08 07/19/17 11:40 07/19/17 15:33 07/20/17 05:05 Monocytes (%) (Auto) 14.0 % (0.0-8.0) 9.9 % (0.0-8.0) Estimat Glomerular Filtration Rate 68 ML/MIN (>89) 79 ML/MIN (>89) Troponin I 0.06 NG/ML (0.02-0.05) 3.40 NG/ML (0.02-0.05) 4.11 NG/ML (0.02-0.05) Activated Partial Thromboplast Time 38.4 SEC (24.3-30.1) Neutrophils (%) (Auto) 74.0 % (16.0-70.0) Albumin 3.3 GM/DL (3.4-5.0) Aspartate Amino Transf (AST/SGOT) 39 U/L (15-37) Chloride Level 109 MEQ/L (98-107) LDL Cholesterol 116 MG/DL (0-99) HDL Cholesterol 33.4 MG/DL (40.0-60.0) Hospital Course 57M with strong family history of OH and CAD presented to the ER two days ago with recurrent substernal chest pain. ER labwork showed elevation of troponin at 0.6 which subsequently jumped as high as 4.11. He was taken to the [facility] yesterday where 3 stents were placed by cardiology. Today he feels fantastic, already notices increased energy. He is free from chest pain and I will write for his discharge when he is cleared by cardiology. Pt Condition on Discharge: Good Discharge Disposition: Discharge Home Discharge Time: <= 30 minutes Mikie Sands MD Jul 20, 2017 08:46
[2017-07-20] MEDS ORDERED: ASPI81 PO (09:00)
[2017-07-20] MEDS ORDERED: BENA20TA PO (09:00)
[2017-07-20] MEDS ORDERED: ASPIRIN 81 MG CHEW TAB PO SCH (09:00)
[2017-07-20] MEDS ORDERED: INFLUENZA VIRUS VACCINE (QUADRIVALENT) 0.5 ML SYR IM ONE (10:00)
--- NOTE | 2017-07-20 10:07 | PD.CARD.PN ---
Subjective Subjective Remarks Feels great No chest pain/SOB Objective Medications Current Medications Medications (Trade) Dose Ordered Sig/Marvin Route Start Time Stop Time Status Last Admin (NS Flush) 2 ml UNSCH PRN IV FLUSH 07/19/17 04:00 (NS Flush) 2 ml BID IV FLUSH 07/19/17 09:00 07/20/17 08:25 (Tylenol) 650 mg Q6H PRN PO 07/19/17 04:00 (Mica 5-325 Mg) 1 tab Q4H PRN PO 07/19/17 04:00 (Yris-Colace) 1 tab BID PO 07/19/17 09:00 (Milk Of Magnesia Liq) 30 ml Q12H PRN PO 07/19/17 04:00 (Senokot) 17.2 mg Q12H PRN PO 07/19/17 04:00 (Dulcolax Supp) 10 mg DAILY PRN RECTAL 07/19/17 04:00 (Lactulose Liq) 30 ml DAILY PRN PO 07/19/17 04:00 (Nitroglycerin 2% Oint) 0.5 inch Q6HR PRN TOPICAL 07/19/17 04:00 (Pravachol) 40 mg DAILY PO 07/19/17 09:00 07/20/17 08:25 (Morphine Inj) 2 mg Q3H PRN IV 07/19/17 04:00 (Lopressor) 25 mg Q12HR PO 07/19/17 09:00 07/20/17 08:25 (Nitroglycerin 2% Oint) 0.5 inch Q6HR TOPICAL 07/19/17 12:00 07/20/17 01:38 Sodium Chloride 1,000 ml @ 100 mls/hr Q10H IV 07/19/17 11:49 07/24/17 11:48 (Aspirin) 325 mg HIDE CURER PO 07/19/17 12:00 07/23/17 11:59 (Benadryl) 50 mg HIDE CURER PO 07/19/17 12:00 07/23/17 11:59 (Valium) 5 mg HIDE CURER PO 07/19/17 12:00 07/23/17 11:59 (Zofran Inj) 4 mg Q6H PRN IVP 07/19/17 15:15 (Aspirin Chew) 81 mg DAILY PO 07/20/17 09:00 12/31/17 08:25 (Brilinta) 90 mg BID PO 07/19/17 21:00 07/20/17 08:25 Vital Signs / I&O Vital Signs Date Time Temp Pulse Resp B/P (MAP) Pulse Ox O2 Delivery O2 Flow Rate FiO2 07/20/17 09:03 73 07/20/17 08:45 97.4 69 18 154/89 (110) 97 07/20/17 08:45 56 07/20/17 06:00 72 07/20/17 05:00 64 07/20/17 04:00 66 07/20/17 03:00 64 07/20/17 02:23 98.1 86 16 132/84 (100) 91 07/20/17 02:00 66 07/20/17 01:00 62 07/20/17 00:00 64 07/19/17 23:00 97.9 64 16 139/78 (98) 94 07/19/17 23:00 64 07/19/17 22:00 60 07/19/17 21:00 58 07/19/17 20:30 97.9 60 16 153/96 (115) 95 07/19/17 20:00 58 07/19/17 19:00 63 07/19/17 18:01 69 07/19/17 17:11 62 07/19/17 16:25 64 07/19/17 15:56 98.0 61 16 129/79 (96) 97 07/19/17 15:56 63 07/19/17 15:35 16 07/19/17 12:01 64 07/19/17 11:43 48 07/19/17 11:43 98.0 55 16 134/85 (101) 16 I/O 07/19/17 07/19/17 07/19/17 07/20/17 07/20/17 07/20/17 07:00 15:00 23:00 07:00 15:00 23:00 Intake Total 60 ml 1540 ml 1520 ml Output Total 500 ml 700 ml Balance 60 ml 1040 ml 820 ml Intake Oral 840 ml 720 ml IV Total 60 ml 700 ml 800 ml Output Urine Total 500 ml 700 ml Stool Total 0 ml 0 ml Physical Exam GENERAL: NAD, AAOx3 SKIN: Warm and dry. HEAD: Atraumatic. Normocephalic. EYES: Pupils equal and round. No scleral icterus. No injection or drainage. ENT: No nasal bleeding or discharge. Mucous membranes pink and moist. NECK: Trachea midline. No JVD. CARDIOVASCULAR: Regular rate and rhythm. RESPIRATORY: No accessory muscle use. Clear to auscultation. Breath sounds equal bilaterally. GASTROINTESTINAL: Abdomen soft, non-tender, nondistended. Hepatic and splenic margins not palpable. MUSCULOSKELETAL: Extremities without clubbing, cyanosis, or edema. No obvious deformities. Right radial no hematoma, neurovascularly intact distally NEUROLOGICAL: Awake and alert. No obvious cranial nerve deficits. Motor grossly within normal limits. Five out of 5 muscle strength in the arms and legs. Normal speech. PSYCHIATRIC: Appropriate mood and affect; insight and judgment normal. Laboratory Laboratory Tests Test 07/19/17 11:40 07/19/17 15:33 07/20/17 05:05 Activated Partial Thromboplast Time 38.4 SEC Troponin I 3.40 NG/ML 4.11 NG/ML White Blood Count 7.3 TH/MM3 Red Blood Count 4.98 MIL/MM3 Hemoglobin 15.3 GM/DL Hematocrit 43.8 % Mean Corpuscular Volume 88.0 FL Mean Corpuscular Hemoglobin 30.7 PG Mean Corpuscular Hemoglobin Concent 34.9 % Red Cell Distribution Width 13.6 % Platelet Count 193 TH/MM3 Mean Platelet Volume 8.5 FL Neutrophils (%) (Auto) 74.0 % Lymphocytes (%) (Auto) 14.5 % Monocytes (%) (Auto) 9.9 % Eosinophils (%) (Auto) 1.2 % Basophils (%) (Auto) 0.4 % Neutrophils # (Auto) 5.4 TH/MM3 Lymphocytes # (Auto) 1.1 TH/MM3 Monocytes # (Auto) 0.7 TH/MM3 Eosinophils # (Auto) 0.1 TH/MM3 Basophils # (Auto) 0.0 TH/MM3 CBC Comment DIFF FINAL Differential Comment Blood Urea Nitrogen 13 MG/DL Creatinine 0.98 MG/DL Random Glucose 80 MG/DL Total Protein 6.6 GM/DL Albumin 3.3 GM/DL Calcium Level 8.7 MG/DL Alkaline Phosphatase 92 U/L Aspartate Amino Transf (AST/SGOT) 39 U/L Alanine Aminotransferase (ALT/SGPT) 27 U/L Total Bilirubin 0.7 MG/DL Sodium Level 141 MEQ/L Potassium Level 3.6 MEQ/L Chloride Level 109 MEQ/L Carbon Dioxide Level 26.0 MEQ/L Anion Gap 6 MEQ/L Estimat Glomerular Filtration Rate 79 ML/MIN Total Creatine Kinase 177 U/L Triglycerides Level 146 MG/DL Cholesterol Level 179 MG/DL LDL Cholesterol 116 MG/DL HDL Cholesterol 33.4 MG/DL Cholesterol/HDL Ratio 5.35 RATIO Assessment and Plan Problem List: (1) NSTEMI (non-ST elevated myocardial infarction) ICD Codes: I21.4 - Non-ST elevation (NSTEMI) myocardial infarction Status: Acute (2) HTN (hypertension) ICD Codes: I10 - Essential (primary) hypertension Assessment and Plan 1) NSTEMI s/p NORBERT to LAD ASA/Brilinta/BB/Statin/YU-I Given a card for Brilinta 30 days with instructions Plan on "Blue Card" to help with medications Given a script for 1 year of Brilinta and if too expensive, given a script for Plavix Discussed extensively with patient and his about taking DAPT and if Brilinta is too expensive then switching to Plavix, but not taking both 2) Echo today 3) After echo, cardiovascularly stable for discharge Sampson Meng DO Jul 20, 2017 10:07
--- NOTE | 2017-07-20 11:42 | ECHRPT ---
Indication: NSTEMI CONCLUSIONS The left ventricular systolic function is normal with an estimated ejection fraction in the range of 60-65%. Mild concentric left ventricular hypertrophy. Doppler parameters are consistent with impaired left ventricular relaxtion (grade 1 diastolic dysfun ction). Trace mitral valve regurgitation. There is trace tricuspid valve regurgitation. BP: 154 / 89 HR: 56 Rhythm: Sinus MEASUREMENTS (Male / Female) Normal Values Technical Quality:Fair 2D ECHO LV Diastolic Diameter PLAX 5.9 cm 4.2 - 5.9 / 3.9 - 5.3 cm LV Systolic Diameter PLAX 3.5 cm IVS Diastolic Thickness 1.1 cm 0.6 - 1.0 / 0.6 - 0.9 cm LVPW Diastolic Thickness 1.1 cm 0.6 - 1.0 / 0.6 - 0.9 cm LV Relative Wall Thickness 0.4 RV Internal Dim ED PLAX 3.0 cm LVOT Diameter 2.5 cm Aortic Root Diameter 3.9 cm LA Systolic Diameter LX 2.7 cm 3.0 - 4.0 / 2.7 - 3.8 cm M-MODE AV Cusp Separation MM 2.3 cm DOPPLER AV Peak Velocity 135.0 cm/s AV Peak Gradient 7.3 mmHg AV Mean Gradient 4.0 mmHg AV Velocity Time Integral 23.5 cm LVOT Peak Velocity 110.0 cm/s LVOT Peak Gradient 4.8 mmHg LVOT Velocity Time Integral 21.0 cm LVOT Cardiac Index 2702.9 cm/minm AV Area Cont Eq vti 4.4 cm AV Area Cont Eq pk 4.0 cm Mitral E Point Velocity 62.7 cm/s Mitral A Point Velocity 72.6 cm/s Mitral E to A Ratio 0.9 LV E' Lateral Velocity 8.5 cm/s Mitral E to LV E' Lateral Ratio 7.4 LV E' Septal Velocity 8.8 cm/s Mitral E to LV E' Septal Ratio 7.1 TR Peak Velocity 243.0 cm/s TR Peak Gradient 23.6 mmHg PV Peak Velocity 85.7 cm/s PV Peak Gradient 2.9 mmHg FINDINGS LEFT VENTRICLE Mild concentric left ventricular hypertrophy. The left ventricular systolic function is normal with an estimated ejection fraction in the range of 60-65%. No regional wall motion abnormalities are present. Doppler parameters are consistent with impaired left ventricular relaxtion (grade 1 diastolic dysfun ction). RIGHT VENTRICLE Normal right ventricular size and systolic function. LEFT ATRIUM The left atrial size is normal. RIGHT ATRIUM The right atrial size is normal. ATRIAL SEPTUM Normal atrial septal thickness. AORTA The aortic root and proximal ascending aorta are normal in size on limited imaging. MITRAL VALVE Structurally normal mitral valve. No mitral valve stenosis. Trace mitral valve regurgitation. AORTIC VALVE Trileaflet aortic valve. No aortic valve stenosis or regurgitation. TRICUSPID VALVE Structurally normal tricuspid valve. No tricuspid valve stenosis. There is trace tricuspid valve regurgitation. The estimated pulmonary arterial pressure is 34 mmHg. PULMONARY VALVE No pulmonary valve regurgitation or stenosis. VESSELS The inferior vena cava is normal in size. PERICARDIUM No pericardial effusion. Sampson Meng DO (Electronically Signed) Final Date:20 July 2017 11:41
--- NOTE | 2017-07-20 12:44 | EKG ---
Date Performed: 07/20/2017 Time Performed: 06:12:02 PTAGE: 57 years EKG: Sinus rhythm . Normal ECG PREVIOUS TRACING : 07/19/2017 17.21 Compared to prior tracing no significant change DOCTOR: Sampson Meng Interpretating Date/Time 07/20/2017 12:43:46
--- NOTE | 2017-07-20 13:41 | EKG ---
Date Performed: 07/19/2017 Time Performed: 01:52:50 PTAGE: 57 years EKG: SINUS BRADYCARDIA POSSIBLE ACUTE LATERAL INJURY PATTERN WITH RECIPROCAL INFERIOR CHANGES BON RDERLINE LEFT AXIS DEVIATION BORDERLINE ECG NO PREVIOUS TRACING DOCTOR: Tuan Hurtado Interpretating Date/Time 07/20/2017 13:40:37
--- NOTE | 2017-07-21 07:24 | MB ---
cc: MARTHA CATHERINE VANCE E. M.D. DATE OF CONSULTATION: 07/19/2017. REASON FOR CONSULTATION/CHIEF COMPLAINT: Chest pain. HISTORY OF PRESENT ILLNESS: Zackery Almazan 57-year-old man with a previous history of smoking and a family history of premature coronary artery disease who is presenting to the hospital with chest pain. The patient has been having multiple episodes of chest pain described as a pressure in the center of his chest with some radiation to the back and to the left chest. It has been intermittent and lasting about ten minutes at a time. He had a particularly severe episode last night for which he had his bring him to the hospital. The chest pain has been relieved. He is currently not having active chest pain now. On telemetry, he just had a more than 17-beat run of fast monomorphic ventricular tachycardia. His troponin is elevated at 0.08. He has never had chest pain before. He has a background history of hypertension for which he has been on Benazepril 10 milligrams daily. PAST MEDICAL HISTORY: 1. Hypertension. 2. He says his LDL cholesterol is elevated at little but not enough for a doctor to treat him on medications. PAST SURGICAL HISTORY: 1. A broken right lower leg with a plate and then subsequently he had the plate removed. 2. Hernia repair in the right groin. 3. Umbilical hernia repair. ALLERGIES: NONE. REVIEW OF SYSTEMS: No urinary symptoms. No gastrointestinal symptoms. No bleeding. The remaining review of systems is also negative. 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 He just recently moved from [place]. He has not established healthcare yet in [place]. FAMILY HISTORY: The father had bypass surgery at age 38 and at age 64. The mother had heart attack, stroke and diabetes and then a valve replaced. He has had a brother who has had stents and possibly also has bypass. PHYSICAL EXAMINATION: GENERAL: A robust-appearing well-developed, well-nourished white male in no acute distress. VITAL SIGNS: Charted. HEAD, EYES, EARS, NOSE, THROAT: Unremarkable. NECK: No jugular venous distention. No bruits. CHEST: Clear to auscultation. CARDIAC: Soft S1. Normal S2 and a soft S4. Regular rate and rhythm. Cannot appreciate any murmur. ABDOMEN: Abdomen soft and nontender. EXTREMITIES: Good radial and pedal pulses. Femoral pulses are diminished. I do not hear any femoral bruits. EKGS: EKG demonstrates sinus rhythm. There is just a millimeter of S-T elevation in I and aVL and just under a millimeter of S-T depression in III and aVf. He has inverted T waves. EKG changes are strongly suggestive of ischemia. LABORATORY STUDIES: Troponin is elevated at 0.08. Creatinine is 1.12. Hematocrit is 45.4. IMPRESSION: Acute non-S-T segment elevation myocardial infarction. PLAN: 1. The patient is on a beta maribel. 2. Nitro paste has been continued. 3. He is on aspirin. 4. Informed consent has been obtained for a catheterization and possible intervention. 5. Plan to start from a radial approach in view of the stronger pulse in the wrist than in the groin. I think it is likely he will need either stenting or bypass surgery. Further therapy to be determined. MD MARINA Valle/JESSICA /11:57 AM /7:01 AM
== END 2017-07-20 12:49 | disposition home or self-care (01) | DRG 247 ==
LOC: NEPE 01:36 → NEDA 03:24 → HCIN 04:20 → HCIS 13:01
PROVIDERS: ADMIT Family Medicine; ATTEND Family Medicine
PROC: 027136Z Dilation of Coronary Artery, Two Arteries with Three Drug-eluting Intraluminal Devices, Percutaneous Approach (ICD-10-PCS; principal; 2017-07-19)
PROC: B2151ZZ Fluoroscopy of Left Heart using Low Osmolar Contrast (ICD-10-PCS; 2017-07-19)
PROC: B2111ZZ Fluoroscopy of Multiple Coronary Arteries using Low Osmolar Contrast (ICD-10-PCS; 2017-07-19)
PROC: 4A023N7 Measurement of Cardiac Sampling and Pressure, Left Heart, Percutaneous Approach (ICD-10-PCS; 2017-07-19)
DX: I21.4 Non-ST elevation (NSTEMI) myocardial infarction (principal); I47.2 Ventricular tachycardia; I10 Essential (primary) hypertension; E86.0 Dehydration; I25.10 Atherosclerotic heart disease of native coronary artery without angina pectoris; Z82.49 Family history of ischemic heart disease and other diseases of the circulatory system; Z87.891 Personal history of nicotine dependence; Z23 Encounter for immunization
CPT/HCPCS: 71010; 80053; 80061; 82550; 84484; 85002; 85025; 85610; 85730; 90686; 92928; 93005; 93306; 93458; 99152; 99153; C1725; C1769; C1874; C1887; C1893; J0583; J1644; J2250; J3010; J7030; Q2038; Q9967